=== PATIENT | male | born 1975 | race Caucasian/White ===

== ENCOUNTER 2018-11-13 15:22 | Inpatient (IN) | payer MEDICAID ==
[~2018-11-13] VITALS: Ht 170.2 cm; Wt 93.6 kg
[2018-11-13] MEDS ORDERED: SOD CHLORIDE 0.9% 1,000 ML IV STA (16:24)
[2018-11-13] MEDS ORDERED: morphine 4 MG/ML VIAL IV STA (16:24)
[2018-11-13] MEDS ORDERED: ONDANSETRON 4 MG INJ IV STA (16:24)
[2018-11-13] MEDS ORDERED: ACETAMINOPHEN 500 MG TAB PO STA (17:10)
[2018-11-13] MEDS ORDERED: SOD CHLORIDE 0.9% 100 ML ONE (17:26)
[2018-11-13] MEDS ORDERED: IOHEXOL 350MG/ML 50 ML BTL ONE (17:26)
[2018-11-13] MEDS ORDERED: IOHEXOL 100 ML ONE (17:26)
[2018-11-13] MEDS ORDERED: HEPARIN 25000 UNITS/250 ML 250 ML IV STA (19:46)
[2018-11-13] MEDS ORDERED: HEPARIN 1000 UNITS/ML 10 ML INJ IV STA (19:46)
[2018-11-13] MEDS ORDERED: ACETAMINOPHEN 325 MG TAB PO PRN (20:30)
[2018-11-13] MEDS ORDERED: ONDANSETRON 4 MG INJ IV PRN ×2 (20:30→21:30)
--- NOTE | 2018-11-13 20:36 | ERD ---
ER Documentation Chief Complaint Chief Complaint headcahe ,rt eye redness x 3 days ,rt 2nd toe pain, discoloration x 3 weeks HPI This is a 43-year-old gentleman who is [place]ish-speaking. [employer]er use. The patient presents with a multitude of different complaints. The patient's main complaint is that his right second toe has pain and discoloration possibly for 3 weeks worse over the last several days. The patient is describing some mild throbbing pain to the right leg that is 3 out of 10. He notes a mild right- sided headache, elevated blood pressure and right eye redness again for approximately 3 days. Patient has not seen a primary care physician. He is a known family history of hypertension as well as diabetes. ROS All systems reviewed and are negative except as per history of present illness. Allergies Allergies: Coded Allergies: No Known Allergy (Unverified , 11/13/18) PMhx/Soc Medical and Surgical Hx: pt denies Medical Hx, pt denies Surgical Hx Hx Alcohol Use: No Hx Substance Use: No Hx Tobacco Use: No Smoking Status: Never smoker FmHx Family History: diabetes Physical Exam Vitals Vital Signs Date Temp Pulse Resp B/P (MAP) Pulse Ox O2 O2 Flow FiO2 Time Delivery Rate 11/13/18 80 16 174/103 100 Room Air 18:51 (126) 11/13/18 98.1 92 18 187/114 99 Room Air 15:58 (138) 11/13/18 98.1 92 18 210/107 99 15:25 (141) Physical Exam General: Well developed, well nourished, no acute distress Head: Normocephalic, atraumatic. Eyes: Pupils equally reactive, EOM intact ENT: Moist mucous membranes Neck: Supple, no lymphadenopathy Respiratory: Lungs clear bilaterally, no distress Cardiovascular: RRR, no murmurs, rubs, or gallops Abdominal: Soft, non-tender, non-distended, no peritoneal signs : Deferred MSK: Patient has gangrene and discoloration of the right second toe. There is 2+ dorsalis pedis and posterior tibial pulses. No temperature deficit to bilateral lower extremities. Neurologic: Alert and oriented, moving all extremities, normal speech, no focal weakness, no cerebellar signs Skin: No rash Psych: Normal mood Result Diagram: 11/13/18 1618 11/13/18 1618 Results 24 hrs Laboratory Tests Test 11/13/18 16:03 11/13/18 16:18 11/13/18 16:19 Bedside Glucose 382 mg/dL White Blood Count 7.3 10^3/ul Red Blood Count 4.89 10^6/ul Hemoglobin 14.3 g/dl Hematocrit 41.7 % Mean Corpuscular Volume 85.3 fl Mean Corpuscular Hemoglobin 29.2 pg Mean Corpuscular 34.3 g/dl Hemoglobin Concent Red Cell Distribution Width 11.7 % Platelet Count 220 10^3/UL Mean Platelet Volume 11.3 fl Immature Granulocytes % 0.300 % Neutrophils % 57.6 % Lymphocytes % 30.6 % Monocytes % 8.5 % Eosinophils % 2.5 % Basophils % 0.5 % Nucleated Red Blood Cells % 0.0 /100WBC Immature Granulocytes # 0.020 10^3/ul Neutrophils # 4.2 10^3/ul Lymphocytes # 2.2 10^3/ul Monocytes # 0.6 10^3/ul Eosinophils # 0.2 10^3/ul Basophils # 0.0 10^3/ul Nucleated Red Blood Cells # 0.0 10^3/ul Prothrombin Time 12.0 Sec Prothrombin Time Ratio 0.9 INR International Normalized Ratio 0.88 Activated Partial Thromboplast 26.3 Sec Time Sodium Level 132 mmol/L Potassium Level 4.2 mmol/L Chloride Level 96 mmol/L Carbon Dioxide Level 28 mmol/L Anion Gap 8 Blood Urea Nitrogen 19 mg/dl Creatinine 0.93 mg/dl Est Glomerular Filtrat Rate mL/min > 60 mL/min Glucose Level 393 mg/dl Calcium Level 9.0 mg/dl POC Venous Lactate 1.5 mmol/L Current Medications Medications Dose Sig/Courtney Start Time Status Last (Trade) Ordered Route PRN Stop Time Admin Dose Reason Admin Sodium 1,000 ml @ Q1H STAT 11/13/18 DC 11/13/18 Chloride 1,000 mls/hr IV 16:24 17:20 11/13/18 17:23 Ondansetron 4 mg ONCE STAT 11/13/18 DC HCl (Zofran IV 16:24 Inj) 11/13/18 16:25 Morphine 4 mg ONCE STAT 11/13/18 DC Sulfate IV 16:24 (morphine) 11/13/18 16:25 1,000 mg ONCE STAT 11/13/18 DC 11/13/18 Acetaminophen PO 17:10 18:08 (Tylenol 11/13/18 17:34 Tab) Iohexol 100 ml @ ud STK-MED 11/13/18 DC 11/13/18 ONCE .ROUTE 17: 17:11/13/18 17:27 Iohexol 50 ml STK-MED 11/13/18 DC 11/13/18 (Omnipaque ONCE .ROUTE 17: 17: 350mg/ ml) 11/13/18 17:27 Sodium 100 ml @ ud STK-MED 11/13/18 DC 11/13/18 Chloride ONCE .ROUTE 17: 17:26 11/13/18 17:27 Heparin 5,000 unit ONCE STAT 11/13/18 DC Sodium IV 19:46 (Porcine) 11/13/18 19:47 (Heparin (1000 Units/ml)) Heparin 250 ml @ 0 ONCE STAT 11/13/18 DC Sodium mls/hr IV 19:46 (Porcine) 11/13/18 19:47 Ondansetron 4 mg ER BRIDGE 11/13/18 HCl (Zofran PRN IV 20:30 Inj) NAUSEA/VOMITI 11/14/18 20:29 NG 650 mg ER BRIDGE 11/13/18 Acetaminophen PRN PO 20:30 (Tylenol .MILD PAIN 11/14/18 20:29 Tab) 1-3 OR TEMP Procedures/MDM EKG, MONITORS, & DIAGNOSTIC IMAGING: EKG: I reviewed and interpreted a 12-lead EKG. Rhythm: Normal sinus rhythm ST Changes: No contiguous ST segment elevations T waves: No contiguous T wave inversions Impression: [No evidence of acute cardiac ischemia] CT brain: No acute process Arterial Study IMPRESSION: Monophasic wave forms bilateral dorsalis pedis arteries consistent with significant stenoses. Normal bilateral ABIs. RPTAT:AAJJ CTA Right leg IMPRESSION: 1. There is occlusion of the right anterior tibial artery just beyond its origin with only faint trickle flow seen in the mid anterior tibial artery. There is reconstitution of the vessel approximately 9 cm above the joint line. 2. Patent and grossly normal caliber of the dorsalis pedis artery. The dominant flow to the right lower extremities from the posterior tibial and peroneal arteries. 3. No evidence of significant atherosclerotic plaque within the right common femoral, superficial femoral or popliteal artery. These vessels are grossly normal in appearance. RPTAT: [facility] INTERPRETATION: I reviewed the laboratory testing and it shows hyperglycemia MEDICAL DECISION MAKING: Patient presents with discoloration of his toe. The patient has hypertension and likely diabetes. All these conditions are likely subacute and the patient has not seen a primary care physician and likely has uncontrolled hypertension and diabetes possibly hyperlipidemia. The patient's discoloration is possibly concerning for possible vascular occlusion though he has no evidence of pulse deficits. He seems to be well perfused distally. Patient will benefit from arterial studies ER COURSE: * Patient CTA is concerning for occlusion. The patient has subacute discomfort and no significant pain out of proportion. Vascular surgeon notified. Dr. Ohara states the patient should be placed on heparin and he will see the patient in the morning. * Pain is well controlled. * Hyperglycemia without evidence of diabetic ketoacidosis. * Heparin bolus and drip initiated CONSULTATION: Vascular surgeon Dr. Ohara notified DISPOSITION PLAN: Accepting care team and consultations: I discussed the current laboratory data, diagnostic imaging and emergency care provided. Admitting team: Dr. Mauricio Admitting team indication: Insurance directed Departure Diagnosis: Primary Impression: Peripheral arterial occlusive disease Additional Impressions: Hyperglycemia Diabetes mellitus, new onset Condition: Stable XIN ROJAS MD November 13, 2018 20:36
[2018-11-13 21:15] VITALS: BP 166/104; PULSE 77; RESP 20
--- NOTE | 2018-11-13 21:24 | HP ---
Date/Time of Note Date/Time of Note DATE: 11/13/18 TIME: 21:22 Assessment/Plan VTE Prophylaxis Pharmacological prophylaxis: heparin Lines/Catheters IV Catheter Type (from [facility]): [facility]ine [facility] Assessment/Plan Hospital Course This is a 43-year-old male being admitted to the telemetry floor for: #1 Right second toe gangrene, arterial occlusion: CT of the lower extremity shows there is occlusion of the right anterior tibial artery just beyond its origin with only faint trickle flow seen in the mid anterior tibial artery. Ther e is reconstitution of the vessel approximately 9 cm above the joint line. Ultrasound bilateral lower extremity: Monophasic wave forms bilateral dorsalis pedis arteries consistent with significant stenoses. Normal bilateral ABIs.Patient has already been started on heparin gtt. vascular surgery consultation as been obtained from the ER. We will keep the patient n.p.o. except meds in case for surgical procedure in the a.m. #2 peripheral arterial disease: Heparin GTT, further management as per #1. #3 elevated blood sugars: Patient likely has undiagnosed underlying diabetes mellitus. Will check a hemoglobin A 1C, insulin sliding scale. We will need to optimize patient's blood sugars the patient is indeed found to be diabetic. #4 obesity: We will check hemoglobin A1c, lipid panel, TSH #5 DVT GI prophylaxis: SCDs, no GI prophylaxis indicated Further treatment strategy will be implemented as per the clinical course. Result Diagram: 11/13/18 1618 11/13/18 1618 Results 24hrs Laboratory Tests Test 11/13/18 16:03 11/13/18 16:18 11/13/18 16:19 Bedside Glucose 382 H White Blood Count 7.3 Red Blood Count 4.89 Hemoglobin 14.3 Hematocrit 41.7 L Mean Corpuscular Volume 85.3 Mean Corpuscular Hemoglobin 29.2 Mean Corpuscular Hemoglobin Concent 34.3 Red Cell Distribution Width 11.7 Platelet Count 220 Mean Platelet Volume 11.3 H Immature Granulocytes % 0.300 Neutrophils % 57.6 Lymphocytes % 30.6 Monocytes % 8.5 Eosinophils % 2.5 Basophils % 0.5 Nucleated Red Blood Cells % 0.0 Immature Granulocytes # 0.020 Neutrophils # 4.2 Lymphocytes # 2.2 Monocytes # 0.6 Eosinophils # 0.2 Basophils # 0.0 Nucleated Red Blood Cells # 0.0 Prothrombin Time 12.0 Prothrombin Time Ratio 0.9 INR International Normalized Ratio 0.88 Activated Partial Thromboplast Time 26.3 Sodium Level 132 L Potassium Level 4.2 Chloride Level 96 L Carbon Dioxide Level 28 Anion Gap 8 Blood Urea Nitrogen 19 Creatinine 0.93 Est Glomerular Filtrat Rate mL/min > 60 Glucose Level 393 H Calcium Level 9.0 POC Venous Lactate 1.5 HPI/ROS Admit Date/Time Admit Date/Time November 13, 2018 at 20:04 Hx of Present Illness Plan: Right second digit pain This is a 43-year-old male who presented to the emergency department complaining of right foot second digit pain. Patient is a poor historian.. The patient's main complaint is that his right second toe has pain and discoloration possibly for 3 weeks worse over the last several days. He reports some mild throbbing pain to the right leg that is 3 out of 10. He notes a mild right-sided headache, elevated blood pressure and right eye redness again for approximately 3 days. Patient has not seen a primary care physician. He is a known family history of hypertension as well as diabetes. Allergies: NKDA Medications: None ROS Const: As per HPI Eyes : No pain discharge or redness or change in visual acuity ENT: No pain, sore throat, congestion, congestion, dysphagia or discharge Respiratory: No shortness of breath, cough, sputum, wheezing, or pleuritic pain Cardiovascular: No chest pain, palpitation, PND, or edema GI : no change in appetite, abdominal pain, nausea, vomiting, diarrhea, constipation, or change in the color his stool Genitourinary: No dysuria, hematuria, flank pain , discharge or CVA tenderness Musculoskeletal: As per HPI Skin: As per HPI Neuro: No headache, dizziness, syncope, seizure, focal weakness, decreased sensation of the bilateral feet Endocrine: No polyuria, polydipsia, temperature intolerance Psych: No hallucination, depression, anxiety or suicidal ideation PMH/Family/Social Past Medical History Medical History: no pertinent history Medications Current Medications Ondansetron HCl (Zofran Inj) 4 mg ER BRIDGE PRN IV NAUSEA/VOMITING; Start 11/13/18 at 20:30; Stop 11/14/18 at 20:29 Acetaminophen (Tylenol Tab) 650 mg ER BRIDGE PRN PO .MILD PAIN 1-3 OR TEMP; Start 11/13/18 at 20:30; Stop 11/14/18 at 20:29 Sodium Chloride 1,000 ml @ 75 mls/hr [id number] IV ; Start 11/14/18 at 00:00; Status UNV IV Flush (NS 3 ml) 3 ml PER PROTOCOL IV ; Start 11/13/18 at 21:30; Status UNV Ondansetron HCl (Zofran Inj) 4 mg Q6H PRN IV NAUSEA/VOMITING; Start 11/13/18 at 21:30; Status UNV Nitroglycerin (Nitroglycerin (Sl Tab) 0.4 Mg) 1 tab Q5M PRN SL .CHEST PAIN; Start 11/13/18 at 21:30; Status UNV Acetaminophen (Tylenol Tab) 650 mg Q6H PRN PO .PAIN 1-3 OR TEMP; Start 11/13/18 at 21:30; Status UNV Acetaminophen/ Hydrocodone Bitart ([place] (5/325)) 1 tab Q6H PRN PO .PAIN 4-6; Start 11/13/18 at 21:30; Status UNV Morphine Sulfate (morphine) 2 mg Q4H PRN IV .PAIN 7-10; Start 11/13/18 at 21:30; Status UNV Coded Allergies: No Known Allergy (Unverified , 11/13/18) Past Surgical History Past Surgical Hx: no surgical history Family History Significant Family History: diabetes, hypertension Social History Alcohol Use: occasionally Smoking Status: Never smoker Drug Use: none Exam/Review of Systems Vital Signs Vitals Vital Signs Date Temp Pulse Resp B/P (MAP) Pulse Ox O2 O2 Flow FiO2 Time Delivery Rate 11/13/18 77 13 165/94 99 Room Air 20:55 (117) 11/13/18 98.1 15:58 Exam Exam General: Patient is a pleasant male currently lying in bed in no acute distress HEENT: Atraumatic, normocephalic. The pupils are equal, round and reactive. Extraocular motor are intact Neck: Supple with full range of motion. No rigidity or meningismus Chest: Nontender Lungs: Clear to auscultation bilaterally no crackles rales or wheezing Heart: Normal S1-S2, Regular rhythm and rate. No murmur, S3, or S4 Abdomen: Soft , nontender, nondistended , bowel sounds are present. No guarding no rebound tenderness , No masses or organomegaly. No costovertebral temporal angle mass Extremities: Patient has gangrene and discoloration of the right second toe. There is 2+ dorsalis pedis and posterior tibial pulses. No temperature deficit to bilateral lower extremities. Skin: Patient does have a plantar surface lesion of the right toe, non-oozing Neurologic: Normal mental status, speech normal, cranial nerves II through XII are intact, diminished sensation of the bilateral plantar surface. Additional Comments PROCEDURE: CT Brain without. CLINICAL INDICATION: Headache TECHNIQUE: A CT of the brain was performed utilizing axial sections from the skull base through the vertex without contrast. The scan was reviewed in soft tissue brain and high frequency resolution bone algorithm windows. Images were reviewed on a high-resolution PACS workstation. The exam CTDI = 39.20 mGy, and the DLP = 634.23 mGy-cm. One or more of the following dose reduction techniques were used: Automated exposure control, adjustment of the mA and / or kV according to patient size, or use of iterative reconstruction technique. DICOM images are available. COMPARISON: None available FINDINGS: The ventricles are normal in size and midline in position. There is no intracranial hemorrhage, midline shift, or mass effect. No abnormal extra-axial fluid collections are identified. The carrero-white differentiation is well preserved. The basal cisterns are patent. The posterior fossa is unremarkable. The visualized portions of the orbits are unremarkable. The paranasal sinuses and mastoid air cells are clear. No calvarial fracture or abnormality are identified. There is right posterior scalp edema. IMPRESSION: 1. No acute intracranial abnormality identified. 2. Right posterior scalp edema. RPTAT: HH .Samreen Nichols MD, Date Time Electronically viewed and signed by .Samreen Nichols MD, MD on 11/13/2018 18:10 .G/ CC: XIN ROJAS MD [id number] PROCEDURE: US Lower extremity arterial. CLINICAL INDICATION: Bilateral lower extremity pain and claudication. Right second toe gangrene. TECHNIQUE: Multiple sonographic images of the bilateral lower extremity arteries were obtained utilizing carrero scale, color-flow and doppler imaging. Bilateral ABIs were performed. COMPARISON: None. FINDINGS: No significant atherosclerotic disease on carrero scale imaging. Velocities and waveforms were obtained as described below. RIGHT LEG: Right common femoral artery: 77 cm/s; triphasic waveforms Right proximal superficial femoral artery: 91 cm/s; triphasic waveforms Right mid superficial femoral artery: 97 cm/s; triphasic waveforms Right distal superficial femoral artery: 66 cm/s; triphasic waveforms Right popliteal artery: 77 cm/s; triphasic waveforms Right posterior tibial artery: 89 cm/s; triphasic waveforms Right dorsalis pedis artery: 39 cm/s; monophasic waveforms Right CRIS: 1.0 LEFT LEG: Left common femoral artery: 96 cm/s; triphasic waveforms Left proximal superficial femoral artery: 60 cm/s; triphasic waveforms Left mid superficial femoral artery: 71 cm/s; triphasic waveforms Left distal superficial femoral artery: 67 cm/s; triphasic waveforms Left popliteal artery: 66 cm/s; triphasic waveforms Left posterior tibial artery: 95 cm/s; triphasic waveforms Left dorsalis pedis artery: 49 cm/s; monophasic waveforms Left CRIS: 1.0 IMPRESSION: Monophasic wave forms bilateral dorsalis pedis arteries consistent with significant stenoses. Normal bilateral ABIs. RPTAT:AAJJ Physician Sienna Date Time Electronically viewed and signed by Physician Sienna on 11/13/2018 17:27 MH/ CC: XIN ROJAS MD [id number] PROCEDURE: CT lower extremity angiogram CLINICAL INDICATION: Right second toe gangrene. TECHNIQUE: A CT angiogram of the right lower extremity was performed on a GE 64-slice CT scanner utilizing high-resolution axial imaging after the uneventful intravenous administration of 120 cc of Omnipaque 350. Delayed high-resolution axial images were performed through the distal lower extremities and feet. 3-D reformats were made. Sagittal and coronal reformatted images were made. One or more the following dose reduction techniques were utilized: Automated exposure control, adjustment of the mA/ or kV according to patient's size, or use of iterative reconstruction technique. DICOM images are available for review. The CTDIvol is 45.8 and 6.5 mGy and the DLP is 804.3 mGycm. COMPARISON: Bilateral lower extremity arterial Doppler study 11/13/2018. FINDINGS: The right common femoral, superficial femoral, and popliteal arteries are patent and normal in caliber without significant plaque. The visualized left common femoral artery and superficial femoral arteries are patent and normal in caliber as well. There is no evidence of significant atherosclerotic plaque. There is occlusion of the right anterior tibial artery with areas of soft and calcific plaque identified. Faint trickle flow is seen within the mid anterior tibial artery. There is reconstitution of the vessel approximately 9 cm above the joint line with only scattered plaque but grossly normal filling of the vessel identified. There is normal contrast flow within the dorsalis pedis. The dominant flow to the right lower extremity is from the posterior tibial and peroneal arteries. The osseous structures are grossly intact. IMPRESSION: 1. There is occlusion of the right anterior tibial artery just beyond its origin with only faint trickle flow seen in the mid anterior tibial artery. The re is reconstitution of the vessel approximately 9 cm above the joint line. 2. Patent and grossly normal caliber of the dorsalis pedis artery. The dominant flow to the right lower extremities from the posterior tibial and peroneal arteries. 3. No evidence of significant atherosclerotic plaque within the right common femoral, superficial femoral or popliteal artery. These vessels are grossly normal in appearance. RPTAT: [facility] .Mariam Ayoub MD, MD Date Time Electronically viewed and signed by .Mariam Ayoub MD, MD on 11/13/2018 18:26 .H/ CC: XIN ROJAS MD [id number] KEARA LOMELI November 13, 2018 21:24
[2018-11-13 21:25] VITALS: PULSE 80
[2018-11-13] MEDS ORDERED: HYDROCODONE/APAP (5/325) TAB PO PRN (21:30)
[2018-11-13] MEDS ORDERED: HEPARIN 1000 UNITS/ML 10 ML INJ IV ONE (21:30)
[2018-11-13] MEDS ORDERED: morphine 2 MG INJ IV PRN (21:30)
[2018-11-13] MEDS ORDERED: NACL 0.9% 3 ML SYG IV SCH (21:30)
[2018-11-13] MEDS ORDERED: LISINOPRIL 20 MG TAB PO ONE (21:30)
[2018-11-13] MEDS ORDERED: NITROGLYCERIN (SL) 0.4 MG TAB SL PRN (21:30)
[2018-11-13 22:00] VITALS: Ht 170.2 cm; Wt 93.6 kg
[2018-11-13] MEDS ORDERED: DEXTROSE 50% 50 ML SYRINGE IV PRN ×2 (22:00)
[2018-11-13] MEDS ORDERED: GLUCOSE GEL 15 GRAM TUBE BUCCAL PRN (22:00)
[2018-11-13] MEDS ORDERED: GLUCAGON 1 MG INJ IM PRN (22:00)
[2018-11-13] MEDS ORDERED: GLUCOSE GEL 15 GRAM TUBE PO PRN ×2 (22:00)
[2018-11-13] MEDS: HEPARIN 25000 UNITS/250 ML 250 ML IV SCH (22:19)
[2018-11-13 23:48] VITALS: BP 148/83; PULSE 79; RESP 18
[2018-11-14] VITALS (10 sets, daily range): BP systolic 140–155; BP diastolic 82–98; PULSE 76–89; RESP 18
[2018-11-14] MEDS: SOD CHLORIDE 0.9% 1,000 ML IV SCH ×2 (00:36→12:21)
[2018-11-14] MEDS: INSULIN ASPART [NOVOLOG] 3 ML PEN SC SCH ×4 (00:41→17:20)
[2018-11-14] MEDS: ACCU-CHEK XX SCH (02:00)
[2018-11-14] MEDS ORDERED: HEPARIN 1000 UNITS/ML 10 ML INJ IV PRN ×2 (03:00)
[2018-11-14] MEDS: HEPARIN 25000 UNITS/250 ML 250 ML IV SCH ×4 (07:26→18:13)
[2018-11-14] MEDS: LISINOPRIL 20 MG TAB PO SCH (08:21)
[2018-11-14] MEDS: Insulin NOVOLOG SS MILD Algorithm (SS with meals and bedtime) SC SCH ×3 (11:20→21:17)
[2018-11-14] MEDS ORDERED: INSULIN ASPART [NOVOLOG] 3 ML PEN SC SCH (11:30)
--- NOTE | 2018-11-14 15:29 | PN ---
Date/Time of Note Date/Time of Note DATE: 11/14/18 TIME: 15:28 Assessment/Plan VTE Prophylaxis Risk score (from Nsg)>0 risk: 1 SCD applied (from Ns): No SCD contraindicated: other Pharmacological prophylaxis: heparin Lines/Catheters IV C[facility]ter Type (from [facility]): Peripheral IV Assessment/Plan Hospital Course SUBJECTIVE: Denies any pain. OBJECTIVE: Physical Exam General: Obese, 43 year-old male lying in bed in no apparent distress. HEENT: Normocephalic, atraumatic. Eyes: Anicteric sclerae, conjunctivae clear. ENT: Nasal septum midline, oral mucosa moist. Neck supple, no JVD noticed. Respiratory: Bilaterally clear breath sounds. No use of accessory muscles of respiration. No adventitious breath sounds. Cardiovascular: S1, S2 heard. Regular rate and rhythm. Abdomen: Soft, nontender, and nondistended. Bowel sounds positive in all 4 quadrants. Genitourinary: Deferred. Extremities: No cyanosis, no clubbing, no edema. Right second toe necrosis with some warmth to touch. Neurologic: Cranial nerves II through XII grossly intact. The patient is awake, alert, and oriented. Skin: Normal skin turgor. No skin rashes. Labs & Vitals per chart ASSESSMENT & PLAN 43-year-old male who is obese who denies any significant past medical history who came with right second toe pain with CTA showing occlusion of the right anterior tibial artery, and was admitted to inpatient setting for further treatment and evaluation. 1. 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 -Continue heparin drip. -Vascular Surgery has been consulted. 2. Peripheral artery disease -Continue medical optimization. -Being followed by vascular surgery. 3. Diabetes mellitus type 2. -Newly diagnosed versus undiagnosed. -Hemoglobin A1c 13.9. -Continue the patient on sliding scale insulin along with basal insulin and premeal insulin. -Diabetes education consult. 4. Hypertension. -Continue the patient on PHYLLIS inhibitors. 5. Obesity. -BMI more than 32 kg/m. -Weight reduction will be advised. 6. Dyslipidemia. -Start the patient on statins. 7. Fluids, electrolytes, and nutrition. -Carbohydrate controlled diet. 8. DVT prophylaxis. -On heparin drip. 9. Plan. -Continue heparin drip. -Continue medical optimization. -Await vascular surgery evaluation. The patient was seen in collaboration with Dr. Farris. Result Diagram: 11/14/18 0505 11/14/18 0505 Results 24hrs Laboratory Tests Test 11/13/18 16:03 11/13/18 16:18 11/13/18 16:19 11/14/18 00:37 Bedside Glucose 382 H 280 H White Blood Count 7.3 Red Blood Count 4.89 Hemoglobin 14.3 Hematocrit 41.7 L Mean Corpuscular 85.3 Volume Mean Corpuscular 29.2 Hemoglobin Mean Corpuscular 34.3 Hemoglobin Concent Red Cell 11.7 Distribution Width Platelet Count 220 Mean Platelet Volume 11.3 H Immature 0.300 Granulocytes % Neutrophils % 57.6 Lymphocytes % 30.6 Monocytes % 8.5 Eosinophils % 2.5 Basophils % 0.5 Nucleated Red Blood 0.0 Cells % Immature 0.020 Granulocytes # Neutrophils # 4.2 Lymphocytes # 2.2 Monocytes # 0.6 Eosinophils # 0.2 Basophils # 0.0 Nucleated Red Blood 0.0 Cells # Prothrombin Time 12.0 Prothrombin Time 0.9 Ratio INR International 0.88 Normalized Ratio Activated 26.3 Partial Thromboplast Time Sodium Level 132 L Potassium Level 4.2 Chloride Level 96 L Carbon Dioxide Level 28 Anion Gap 8 Blood Urea Nitrogen 19 Creatinine 0.93 Est Glomerular > 60 Filtrat Rate mL/min Glucose Level 393 H Calcium Level 9.0 POC Venous Lactate 1.5 Test 11/14/18 02:04 11/14/18 05:05 11/14/18 05:38 11/14/18 07:53 Bedside Glucose 254 H 259 H White Blood Count 7.3 Red Blood Count 4.64 L Hemoglobin 13.9 L Hematocrit 39.4 L Mean Corpuscular 84.9 Volume Mean Corpuscular 30.0 Hemoglobin Mean Corpuscular 35.3 Hemoglobin Concent Red Cell 12.0 Distribution Width Platelet Count 193 Mean Platelet Volume 11.0 H Immature 0.100 Granulocytes % Neutrophils % 52.5 Lymphocytes % 33.8 Monocytes % 8.4 Eosinophils % 4.5 Basophils % 0.7 Nucleated Red Blood 0.0 Cells % Immature 0.010 Granulocytes # Neutrophils # 3.8 Lymphocytes # 2.5 Monocytes # 0.6 Eosinophils # 0.3 Basophils # 0.1 Nucleated Red Blood 0.0 Cells # Prothrombin Time 13.4 Prothrombin Time 1.0 Ratio INR International 1.01 Normalized Ratio Activated > 180.0 *H 74.2 *H Partial Thromboplast Time Sodium Level 138 Potassium Level 3.7 Chloride Level 106 # Carbon Dioxide Level 26 Anion Gap 6 Blood Urea Nitrogen 13 Creatinine 0.64 Est Glomerular > 60 Filtrat Rate mL/min Glucose Level 277 #H Hemoglobin A1c 13.9 H Calcium Level 8.2 L Magnesium Level 2.0 Total Bilirubin 0.3 Direct Bilirubin 0.00 Indirect Bilirubin 0.3 Aspartate Amino 29 Transf (AST/SGOT) Alanine 36 Aminotransferase (AL T/SGPT) Alkaline Phosphatase 99 Total Protein 6.8 Albumin 3.2 L Globulin 3.60 H Albumin/Globulin 0.88 Ratio Triglycerides Level 166 H Cholesterol Level 201 H LDL Cholesterol, 123 Calculated HDL Cholesterol 45 Cholesterol/HDL 4.4 Ratio Thyroid Stimulating 4.050 Hormone (TSH) Test 11/14/18 08:03 11/14/18 10:59 11/14/18 14:54 Bedside Glucose 249 H 209 Activated 66.6 H Partial Thromboplast Time Exam/Review of Systems Exam Vitals Vital Signs Date Temp Pulse Resp B/P (MAP) Pulse Ox O2 O2 Flow FiO2 Time Delivery Rate 11/14/18 98.3 89 18 150/89 97 15:22 (109) 11/14/18 Room Air 04:04 Results Results 24hrs Laboratory Tests Test 11/13/18 16:03 11/13/18 16:18 11/13/18 16:19 11/14/18 00:37 Bedside Glucose 382 H 280 H White Blood Count 7.3 Red Blood Count 4.89 Hemoglobin 14.3 Hematocrit 41.7 L Mean Corpuscular 85.3 Volume Mean Corpuscular 29.2 Hemoglobin Mean Corpuscular 34.3 Hemoglobin Concent Red Cell 11.7 Distribution Width Platelet Count 220 Mean Platelet Volume 11.3 H Immature 0.300 Granulocytes % Neutrophils % 57.6 Lymphocytes % 30.6 Monocytes % 8.5 Eosinophils % 2.5 Basophils % 0.5 Nucleated Red Blood 0.0 Cells % Immature 0.020 Granulocytes # Neutrophils # 4.2 Lymphocytes # 2.2 Monocytes # 0.6 Eosinophils # 0.2 Basophils # 0.0 Nucleated Red Blood 0.0 Cells # Prothrombin Time 12.0 Prothrombin Time 0.9 Ratio INR International 0.88 Normalized Ratio Activated 26.3 Partial Thromboplast Time Sodium Level 132 L Potassium Level 4.2 Chloride Level 96 L Carbon Dioxide Level 28 Anion Gap 8 Blood Urea Nitrogen 19 Creatinine 0.93 Est Glomerular > 60 Filtrat Rate mL/min Glucose Level 393 H Calcium Level 9.0 POC Venous Lactate 1.5 Test 11/14/18 02:04 11/14/18 05:05 11/14/18 05:38 11/14/18 07:53 Bedside Glucose 254 H 259 H White Blood Count 7.3 Red Blood Count 4.64 L Hemoglobin 13.9 L Hematocrit 39.4 L Mean Corpuscular 84.9 Volume Mean Corpuscular 30.0 Hemoglobin Mean Corpuscular 35.3 Hemoglobin Concent Red Cell 12.0 Distribution Width Platelet Count 193 Mean Platelet Volume 11.0 H Immature 0.100 Granulocytes % Neutrophils % 52.5 Lymphocytes % 33.8 Monocytes % 8.4 Eosinophils % 4.5 Basophils % 0.7 Nucleated Red Blood 0.0 Cells % Immature 0.010 Granulocytes # Neutrophils # 3.8 Lymphocytes # 2.5 Monocytes # 0.6 Eosinophils # 0.3 Basophils # 0.1 Nucleated Red Blood 0.0 Cells # Prothrombin Time 13.4 Prothrombin Time 1.0 Ratio INR International 1.01 Normalized Ratio Activated > 180.0 *H 74.2 *H Partial Thromboplast Time Sodium Level 138 Potassium Level 3.7 Chloride Level 106 # Carbon Dioxide Level 26 Anion Gap 6 Blood Urea Nitrogen 13 Creatinine 0.64 Est Glomerular > 60 Filtrat Rate mL/min Glucose Level 277 #H Hemoglobin A1c 13.9 H Calcium Level 8.2 L Magnesium Level 2.0 Total Bilirubin 0.3 Direct Bilirubin 0.00 Indirect Bilirubin 0.3 Aspartate Amino 29 Transf (AST/SGOT) Alanine 36 Aminotransferase (AL T/SGPT) Alkaline Phosphatase 99 Total Protein 6.8 Albumin 3.2 L Globulin 3.60 H Albumin/Globulin 0.88 Ratio Triglycerides Level 166 H Cholesterol Level 201 H LDL Cholesterol, 123 Calculated HDL Cholesterol 45 Cholesterol/HDL 4.4 Ratio Thyroid Stimulating 4.050 Hormone (TSH) Test 11/14/18 08:03 11/14/18 10:59 11/14/18 14:54 Bedside Glucose 249 H 209 Activated 66.6 H Partial Thromboplast Time Medications Medication Current Medications Ondansetron HCl (Zofran Inj) 4 mg ER BRIDGE PRN IV NAUSEA/VOMITING; Start 11/13/18 at 20:30; Stop 11/14/18 at 20:29 Acetaminophen (Tylenol Tab) 650 mg ER BRIDGE PRN PO .MILD PAIN 1-3 OR TEMP; Start 11/13/18 at 20:30; Stop 11/14/18 at 20:29 Sodium Chloride 1,000 ml @ 75 mls/hr [id number] IV Last administered on 11/14/18at 12:21; Admin Dose 75 MLS/HR; Start 11/14/18 at 00:00 IV Flush (NS 3 ml) 3 ml PER PROTOCOL IV ; Start 11/13/18 at 21:30 Ondansetron HCl (Zofran Inj) 4 mg Q6H PRN IV NAUSEA/VOMITING; Start 11/13/18 at 21:30 Nitroglycerin (Nitroglycerin (Sl Tab) 0.4 Mg) 1 tab Q5M PRN SL .CHEST PAIN; Start 11/13/18 at 21:30 Acetaminophen (Tylenol Tab) 650 mg Q6H PRN PO .PAIN 1-3 OR TEMP; Start 11/13/18 at 21:30 Acetaminophen/ Hydrocodone Bitart ([place] (5/325)) 1 tab Q6H PRN PO .PAIN 4-6; Start 11/13/18 at 21:30 Morphine Sulfate (morphine) 2 mg Q4H PRN IV .PAIN 7-10; Start 11/13/18 at 21:30 Diagnostic Test (Pha) (Accu-Chek) 1 ea 02 XX ; Start 11/14/18 at 02:00 Lisinopril (Zestril) 20 mg DAILY PO Last administered on 11/14/18at 08:21; Admin Dose 20 MG; Start 11/14/18 at 09:00 Heparin Sodium (Porcine) (Heparin (1000 Units/ml)) 7,500 unit PER PROTOCOL PRN IV aPTT<47; Start 11/14/18 at 03:00 Heparin Sodium (Porcine) (Heparin (1000 Units/ml)) 3,700 unit PER PROTOCOL PRN IV aPTT<47-57; Start 11/14/18 at 03:00 Heparin Sodium (Porcine) 250 ml @ 17 mls/hr PER PROTOCOL IV Last administered on 11/14/18at 09:42; Admin Dose 14 MLS/HR; Start 11/13/18 at 21:30 Miscellaneous Information 1 ea NOTE XX ; Start 5/29/19 at 22:00 Glucose (Glutose) 15 gm Q15M PRN PO DECREASED GLUCOSE; Start 11/13/18 at 22:00 Glucose (Glutose) 22.5 gm Q15M PRN PO DECREASED GLUCOSE; Start 11/13/18 at 22:00 Dextrose (D50w Syringe) 25 ml Q15M PRN IV DECREASED GLUCOSE; Start 11/13/18 at 22:00 Dextrose (D50w Syringe) 50 ml Q15M PRN IV DECREASED GLUCOSE; Start 11/13/18 at 22:00 Glucagon (Glucagen) 1 mg Q15M PRN IM DECREASED GLUCOSE; Start 11/13/18 at 22:00 Glucose (Glutose) 15 gm Q15M PRN BUCCAL DECREASED GLUCOSE; Start 11/13/18 at 22:00 Insulin Aspart (Novolog Insulin Pen) (Adult SC Insulin - Mild Algorithm)... AC MEALS AND BEDTIME SC Last administered on 11/14/18at 11:20; Admin Dose 2 UNIT; Start 11/14/18 at 11:30 IVONNE GARCIA NP November 14, 2018 15:29
[2018-11-14] MEDS ORDERED: INSULIN GLARGINE [LANTus] (100 UNITS/ML) SYG SC SCH (20:00)
[2018-11-14] MEDS: ATORVASTATIN 40 MG TAB PO SCH (21:15)
[2018-11-14] MEDS: ACETAMINOPHEN 325 MG TAB PO PRN (21:24)
[2018-11-14] MEDS ORDERED: hydrALAzine 20 MG INJ IV PRN (21:30)
--- NOTE | 2018-11-14 23:06 | CONS ---
DATE OF ADMISSION: 11/13/2018 DATE OF CONSULTATION: 11/14/2018 REASON FOR CONSULTATION: Evaluation for peripheral vascular disease. HISTORY OF PRESENT ILLNESS: This is a 43-year-old male with a history of hypertension, diabetes, per ipheral vascular disease, admitted because of a right second toe gangrene. Part of his workup has in cluded arterial studies of the lower extremity, which was positive for no significant atherosclerotic disease and triphasic flow all the way down through the femoral popliteal system and the posterior t ibial system; however, monophasic flow in the dorsalis pedis arteries bilaterally. He also had a CT angiogram and the CT angiogram showed occlusion of the right anterior tibial artery at its origin with reconstitution of the vessel 9 cm below. The patient's problem is chronic. The p atient does not have a leukocytosis or fever. His white count is 7.3 and there is no fever. His hem oglobin A1c is 13.9. PAST MEDICAL HISTORY: Hypertension, hyperlipidemia, diabetes. PAST SURGICAL HISTORY: None. ALLERGIES: NONE. SOCIAL HISTORY: No smoking, drinking or drug use. MEDICATIONS: List reviewed. PHYSICAL EXAMINATION: VITAL SIGNS: Blood pressure is 110/60, pulse is 80, respirations 18. CARDIOVASCULAR: Regular rate and rhythm. No murmurs, gallops or rubs. LUNGS: Clear to auscultation and palpation. ABDOMEN: Soft, nontender, nondistended. EXTREMITIES: Warm all the way down to the toes. There is capillary refill 2 seconds in each side. There are bilateral femoral pulses, popliteal pulses and posterior tibial pulses. Dorsalis pedis pul ses are absent. LABORATORY VALUES: Significant for a white count of 7.3, hemoglobin 13.9 and a creatinine of 0.6. IMPRESSION: 1. Peripheral vascular disease. 2. Gangrene, right second toe. 3. Diabetes. RECOMMENDATIONS: This patient will probably lose the right second toe when the lines of demarcations are complete. At this time, no surgical intervention is needed. We will continue local wound care, diabetes control. Discussed with the patient at length. All questions were answered. Dictated By: MARKEL MERIDA MD FM/NTS Conf#: [id number] DID#: [id number] CC: KEARA LOMELI MD;*EndCC*
[2018-11-15] MEDS: ACCU-CHEK XX SCH (02:00)
[2018-11-15 02:25] VITALS: BP 144/88; PULSE 77; RESP 16
[2018-11-15] MEDS: SOD CHLORIDE 0.9% 1,000 ML IV SCH ×3 (02:40→16:00)
[2018-11-15 08:16] VITALS: BP 177/98; PULSE 83; RESP 18
[2018-11-15] MEDS: INSULIN ASPART [NOVOLOG] 3 ML PEN SC SCH ×3 (08:18→17:41)
[2018-11-15] MEDS: Insulin NOVOLOG SS MILD Algorithm (SS with meals and bedtime) SC SCH ×4 (08:18→20:52)
[2018-11-15] MEDS: LISINOPRIL 20 MG TAB PO SCH (09:00)
[2018-11-15] MEDS: HEPARIN 25000 UNITS/250 ML 250 ML IV SCH ×2 (10:52→12:40)
[2018-11-15] MEDS: ACETAMINOPHEN 325 MG TAB PO PRN ×2 (12:24→18:20)
[2018-11-15 14:58] VITALS: BP 150/89; PULSE 90; RESP 18
[2018-11-15] MEDS: CIPROFLOXACIN 0.3% 2.5 ML OPH RIGHT EYE SCH ×3 (15:17→21:51)
--- NOTE | 2018-11-15 15:59 | PN ---
Date/Time of Note Date/Time of Note DATE: 11/15/18 TIME: 15:57 Assessment/Plan VTE Prophylaxis Risk score (from Ns)>0 risk: 1 SCD applied (from Ns): No SCD contraindicated: other Pharmacological prophylaxis: heparin Lines/Catheters IV Catheter Type (from [facility]): Peripheral IV Assessment/Plan Hospital Course SUBJECTIVE: Denies any pain. OBJECTIVE: Physical Exam General: Obese, 43 year-old male lying in bed in no apparent distress. HEENT: Normocephalic, atraumatic. Eyes: Anicteric sclerae, conjunctivae red on the right side. ENT: Nasal septum midline, oral mucosa moist. Neck supple, no JVD noticed. Respiratory: Bilaterally clear breath sounds. No use of accessory muscles of respiration. No adventitious breath sounds. Cardiovascular: S1, S2 heard. Regular rate and rhythm. Abdomen: Soft, nontender, and nondistended. Bowel sounds positive in all 4 quadrants. Genitourinary: Deferred. Extremities: No cyanosis, no clubbing, no edema. Right second toe necrosis with some warmth to touch. Neurologic: Cranial nerves II through XII grossly intact. The patient is awake, alert, and oriented. Skin: Normal skin turgor. No skin rashes. Labs & Vitals per chart ASSESSMENT & PLAN 43-year-old male who is obese who denies any significant past medical history who came with right second toe pain with CTA showing occlusion of the right anterior tibial artery, and was admitted to inpatient setting for further treatment and evaluation. 1. 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 -Continue heparin drip. -S/P evaluation by vascular surgery recommended no vascular intervention. -Obtain podiatry consult. 2. Peripheral artery disease -Continue medical optimization. -Being followed by vascular surgery. 3. Diabetes mellitus type 2. -Newly diagnosed versus undiagnosed. -Hemoglobin A1c 13.9. -Continue the patient on sliding scale insulin along with basal insulin and premeal insulin. -Diabetes education consult. 4. Hypertension. -Continue the patient on PHYLLIS inhibitors. 5. Obesity. -BMI more than 32 kg/m. -Weight reduction will be advised. 6. Dyslipidemia. -Continue the patient on statins. 7. Fluids, electrolytes, and nutrition. -Carbohydrate controlled diet. 8. DVT prophylaxis. -On heparin drip. 9. Plan. -Continue heparin drip. -Continue medical optimization. -Await Podiatry evaluation. The patient was seen in collaboration with Dr. Farris. Result Diagram: 11/15/18 0509 11/15/18 0509 Results 24hrs Laboratory Tests Test 11/14/18 17:14 11/14/18 21:15 11/14/18 22:28 11/15/18 02:04 Bedside Glucose 283 H 232 H 195 Activated 78.7 *H Partial Thromboplast Time Test 11/15/18 05:09 11/15/18 08:03 11/15/18 11:41 11/15/18 12:29 White Blood Count 6.6 Red Blood Count 4.64 L Hemoglobin 13.7 L Hematocrit 40.2 L Mean Corpuscular 86.6 Volume Mean Corpuscular 29.5 Hemoglobin Mean Corpuscular 34.1 Hemoglobin Concent Red Cell 12.3 Distribution Width Platelet Count 212 Mean Platelet Volume 11.0 H Immature 0.200 Granulocytes % Neutrophils % 52.7 Lymphocytes % 32.8 Monocytes % 10.5 Eosinophils % 3.3 Basophils % 0.5 Nucleated Red Blood 0.0 Cells % Immature 0.010 Granulocytes # Neutrophils # 3.5 Lymphocytes # 2.2 Monocytes # 0.7 Eosinophils # 0.2 Basophils # 0.0 Nucleated Red Blood 0.0 Cells # Erythrocyte 35 H Sedimentation Rate Activated 112.5 *H 63.3 H Partial Thromboplast Time Sodium Level 139 Potassium Level 3.9 Chloride Level 106 Carbon Dioxide Level 27 Anion Gap 6 Blood Urea Nitrogen 8 Creatinine 0.66 Est Glomerular > 60 Filtrat Rate mL/min Glucose Level 246 H Calcium Level 8.6 Phosphorus Level 5.1 H Magnesium Level 2.0 Total Bilirubin 0.4 Direct Bilirubin 0.00 Indirect Bilirubin 0.4 Aspartate Amino 38 Transf (AST/SGOT) Alanine 37 Aminotransferase (AL T/SGPT) Alkaline Phosphatase 82 C-Reactive Protein 0.7 Total Protein 6.7 Albumin 3.2 L Globulin 3.50 H Albumin/Globulin 0.91 Ratio Bedside Glucose 248 H 269 H Exam/Review of Systems Exam Vitals Vital Signs Date Temp Pulse Resp B/P (MAP) Pulse Ox O2 O2 Flow FiO2 Time Delivery Rate 11/15/18 98.1 90 18 150/89 98 14:58 (109) 11/14/18 Room Air 04:04 Intake and Output 11/14/18 11/14/1819 1515:00 23:00 07:00 IntakeIntake Total 850 ml 1832 ml 500 ml BalanceBalance 850 ml 1832 ml 500 ml Results Results 24hrs Laboratory Tests Test 11/14/18 17:14 11/14/18 21:15 11/14/18 22:28 11/15/18 02:04 Bedside Glucose 283 H 232 H 195 Activated 78.7 *H Partial Thromboplast Time Test 11/15/18 05:09 11/15/18 08:03 11/15/18 11:41 11/15/18 12:29 White Blood Count 6.6 Red Blood Count 4.64 L Hemoglobin 13.7 L Hematocrit 40.2 L Mean Corpuscular 86.6 Volume Mean Corpuscular 29.5 Hemoglobin Mean Corpuscular 34.1 Hemoglobin Concent Red Cell 12.3 Distribution Width Platelet Count 212 Mean Platelet Volume 11.0 H Immature 0.200 Granulocytes % Neutrophils % 52.7 Lymphocytes % 32.8 Monocytes % 10.5 Eosinophils % 3.3 Basophils % 0.5 Nucleated Red Blood 0.0 Cells % Immature 0.010 Granulocytes # Neutrophils # 3.5 Lymphocytes # 2.2 Monocytes # 0.7 Eosinophils # 0.2 Basophils # 0.0 Nucleated Red Blood 0.0 Cells # Erythrocyte 35 H Sedimentation Rate Activated 112.5 *H 63.3 H Partial Thromboplast Time Sodium Level 139 Potassium Level 3.9 Chloride Level 106 Carbon Dioxide Level 27 Anion Gap 6 Blood Urea Nitrogen 8 Creatinine 0.66 Est Glomerular > 60 Filtrat Rate mL/min Glucose Level 246 H Calcium Level 8.6 Phosphorus Level 5.1 H Magnesium Level 2.0 Total Bilirubin 0.4 Direct Bilirubin 0.00 Indirect Bilirubin 0.4 Aspartate Amino 38 Transf (AST/SGOT) Alanine 37 Aminotransferase (AL T/SGPT) Alkaline Phosphatase 82 C-Reactive Protein 0.7 Total Protein 6.7 Albumin 3.2 L Globulin 3.50 H Albumin/Globulin 0.91 Ratio Bedside Glucose 248 H 269 H Medications Medication Current Medications Sodium Chloride 1,000 ml @ 75 mls/hr [id number] IV Last administered on 11/15/18at 04:45; Admin Dose 75 MLS/HR; Start 11/14/18 at 00:00 IV Flush (NS 3 ml) 3 ml PER PROTOCOL IV ; Start 11/13/18 at 21:30 Ondansetron HCl (Zofran Inj) 4 mg Q6H PRN IV NAUSEA/VOMITING; Start 11/13/18 at 21:30 Nitroglycerin (Nitroglycerin (Sl Tab) 0.4 Mg) 1 tab Q5M PRN SL .CHEST PAIN; Start 11/13/18 at 21:30 Acetaminophen (Tylenol Tab) 650 mg Q6H PRN PO .PAIN 1-3 OR TEMP Last administered on 11/15/18at 12:24; Admin Dose 650 MG; Start 11/13/18 at 21:30 Acetaminophen/ Hydrocodone Bitart ([place] (5/325)) 1 tab Q6H PRN PO .PAIN 4-6; Start 11/13/18 at 21:30 Morphine Sulfate (morphine) 2 mg Q4H PRN IV .PAIN 7-10; Start 11/13/18 at 21:30 Diagnostic Test (Pha) (Accu-Chek) 1 ea 02 XX ; Start 11/14/18 at 02:00 Lisinopril (Zestril) 20 mg DAILY PO Last administered on 11/15/18at 09:00; Admin Dose 20 MG; Start 11/14/18 at 09:00 Heparin Sodium (Porcine) (Heparin (1000 Units/ml)) 7,500 unit PER PROTOCOL PRN IV aPTT<47; Start 11/14/18 at 03:00 Heparin Sodium (Porcine) (Heparin (1000 Units/ml)) 3,700 unit PER PROTOCOL PRN IV aPTT<47-57; Start 11/14/18 at 03:00 Heparin Sodium (Porcine) 250 ml @ 17 mls/hr PER PROTOCOL IV Last administered on 11/15/18at 12:40; Admin Dose 16 MLS/HR; Start 11/13/18 at 21:30 Miscellaneous Information 1 ea NOTE XX ; Start 11/13/18 at 22:00 Glucose (Glutose) 15 gm Q15M PRN PO DECREASED GLUCOSE; Start 11/13/18 at 22:00 Glucose (Glutose) 22.5 gm Q15M PRN PO DECREASED GLUCOSE; Start 11/13/18 at 22:00 Dextrose (D50w Syringe) 25 ml Q15M PRN IV DECREASED GLUCOSE; Start 11/13/18 at 22:00 Dextrose (D50w Syringe) 50 ml Q15M PRN IV DECREASED GLUCOSE; Start 11/13/18 at 22:00 Glucagon (Glucagen) 1 mg Q15M PRN IM DECREASED GLUCOSE; Start 11/13/18 at 22:00 Glucose (Glutose) 15 gm Q15M PRN BUCCAL DECREASED GLUCOSE; Start 11/13/18 at 22:00 Insulin Aspart (Novolog Insulin Pen) (Adult SC Insulin - Mild Algorithm)... AC MEALS AND BEDTIME SC Last administered on 11/15/18 12:34; Admin Dose 4 UNIT; Start 11/14/18 at 11:30 Atorvastatin Calcium (Lipitor) 40 mg HS PO Last administered on 11/14/18 21:15; Admin Dose 40 MG; Start 11/14/18 at 21:00 Insulin Glargine (Lantus) 14 units DAILY@2000 SC Last administered on 11/14/18 20:22; Admin Dose 14 UNITS; Start 11/14/18 at 20:00 Insulin Aspart (Novolog Insulin Pen) 5 unit WITH MEALS SC Last administered on 11/15/18 12:34; Admin Dose 5 UNIT; Start 11/14/18 at 18:00 Hydralazine HCl (Apresoline) 10 mg Q4H PRN IV sbp above 170 Last administered on 11/15/18 09:00; Admin Dose 10 MG; Start 11/14/18 at 21:30 Ciprofloxacin HCl (Ciloxan 0.3% Oph) 1 drop Q4H RIGHT EYE Last administered on 11/15/18at 15:17; Admin Dose 1 DROP; Start 11/15/18 at 13:00 IVONNE GARCIA NP November 15, 2018 15:59
[2018-11-15] MEDS ORDERED: INSULIN GLARGINE [LANTus] (100 UNITS/ML) SYG SC SCH (20:00)
[2018-11-15 20:43] VITALS: BP 141/89; PULSE 89; RESP 17
[2018-11-15] MEDS: ATORVASTATIN 40 MG TAB PO SCH (20:44)
[2018-11-15] MEDS: MUPIROCIN 2% 22 GM OINT TOP SCH (20:47)
[2018-11-15] MEDS: CEFAZOLIN 1 GM/50 ML (PMX) 50 ML IVPB SCH (21:51)
[2018-11-16] MEDS: CIPROFLOXACIN 0.3% 2.5 ML OPH RIGHT EYE SCH ×4 (01:56→13:05)
[2018-11-16] MEDS: ACCU-CHEK XX SCH (01:59)
[2018-11-16 02:20] VITALS: BP 111/65; PULSE 75; RESP 18
[2018-11-16] MEDS: HEPARIN 25000 UNITS/250 ML 250 ML IV SCH (03:03)
[2018-11-16] MEDS: CEFAZOLIN 1 GM/50 ML (PMX) 50 ML IVPB SCH ×2 (05:55→14:11)
[2018-11-16 07:31] VITALS: BP 146/82; PULSE 84; RESP 18
[2018-11-16] MEDS: LISINOPRIL 20 MG TAB PO SCH (08:26)
[2018-11-16] MEDS: ACETAMINOPHEN 325 MG TAB PO PRN (08:27)
[2018-11-16] MEDS: MUPIROCIN 2% 22 GM OINT TOP SCH (08:27)
[2018-11-16] MEDS: Insulin NOVOLOG SS MILD Algorithm (SS with meals and bedtime) SC SCH ×2 (08:30→13:04)
[2018-11-16] MEDS: INSULIN ASPART [NOVOLOG] 3 ML PEN SC SCH ×2 (08:31→13:05)
[2018-11-16] MEDS ORDERED: CHOLECALCIFEROL 2,000 UNIT CAP PO SCH (10:30)
[2018-11-16 13:50] VITALS: BP 152/89; PULSE 92; RESP 18
--- NOTE | 2018-11-16 15:00 | PN ---
Date/Time of Note Date/Time of Note DATE: 11/16/18 TIME: 14:59 Assessment/Plan Lines/Catheters IV Catheter Type (from Nrs): [place] Assessment/Plan Assessment/Plan 1. Peripheral vascular disease. 2. Gangrene, right second toe. 3. Diabetes. RECOMMENDATIONS: This patient will probably lose the right second toe when the lines of demarcations are complete. Patient has triphasic flow in the femoral and popliteal arteries and two-vessel runoff with occlusion of the anterior tibial artery At this time, no surgical intervention is needed. We will continue local wound care, diabetes control. Discussed with the patient at length. All questions were answered. Subjective 24 Hr Interval Summary Constitutional: improved Pain Control: mild Exam/Review of Systems Vital Signs Vitals Vital Signs Date Temp Pulse Resp B/P (MAP) Pulse Ox O2 O2 Flow FiO2 Time Delivery Rate 11/16/18 98.0 84 18 146/82 97 Room Air 07:31 (103) Intake and Output 11/15/18 11/15/18 11/16/18 1515:00 23:00 07:00 IntakeIntake Total 146 ml 1724 ml 271 ml BalanceBalance 146 ml 1724 ml 271 ml Exam Eyes: nl conjunctiva, EOMI, nl lids, nl sclera ENMT: nl external ears & nose, nl lips & teeth, nl nasal mucosa & septum, mucosa pink and moist Neck: supple, non-tender Respiratory: clear to auscultation, normal air movement Cardiovascular: regular rate and rhythm, nl pulses Gastrointestinal: soft, nl liver, spleen, non-tender Musculoskeletal: nl extremities to inspection, nl gait and stance Results Result Diagram: 11/16/18 0652 11/16/18 0652 MARKEL MERIDA MD Nov 16, 2018 15:00
[2018-11-16] MEDS ORDERED: CHOL200073 PO (16:17)
[2018-11-16] MEDS ORDERED: LISI-471 PO (16:17)
[2018-11-16] MEDS ORDERED: ATOR40TA68 PO (16:17)
[2018-11-16] MEDS ORDERED: GLIP5TAB13 PO (16:17)
[2018-11-16] MEDS ORDERED: CEPH-443 PO (16:17)
[2018-11-16] MEDS ORDERED: METF-849 PO (16:17)
--- NOTE | 2018-11-16 16:22 | PDOCDIS ---
Discharge Instructions CONDITION [id number] Patient Condition: [id number] Stable HOME CARE INSTRUCTIONS: [id number] Diet Instructions: [id number] Low Fat /Cholesterol [id number] Special Diet: [id number] Low carbohydrate FOLLOW UP/APPOINTMENTS Follow-up Plan 1. Please follow-up with the wound care clinic at [facility]. Call for appointment at [phone]. 2. Neville López MD Specialty: Internal Medicine Office Address: [address] [place] [address] Office OTHER ORDERS: Other Orders: 1. Take medications as per prescription. Take over the counter aspirin 81 mg orally daily. 2. Take a low-cholesterol, low carbohydrate diet. 3. Resume activities as tolerated, but using a postop shoe on the right foot. 4. Follow-up with the [facility] wound care clinic in 1 week. 5. Please follow-up with your primary care physician in 1 week. If you do not have a primary care physician, please call Dr. Neville López's office. 6. Please go to the nearest emergency room if you have persistent fevers, worsening pain on the affected toe, or any other unusual signs/symptoms. IVONNE GARCIA NP Nov 16, 2018 16:22
[2018-11-16] MEDS ORDERED: ASPI-817 PO (16:50)
--- NOTE | 2018-11-16 16:53 | DS ---
Date/Time of Note Date/Time of Note DATE: 11/16/18 TIME: 16:52 Discharge Summary Admission/Discharge Info Admit Date/Time November 13, 2018 at 20:04 Discharge Date/Time Discharge Diagnosis 1. 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 2. Peripheral artery disease 3. Diabetes mellitus type 2. Newly diagnosed versus undiagnosed. Hemoglobin A1c 13.9. 4. Hypertension. 5. Obesity. BMI more than 32 kg/m. 6. Dyslipidemia. 7. Vitamin D deficiency. Patient Condition: Stable Consults 1. John Ohara MD, Vascular Surgery. 2. Nic Palomo DPM, Podiatry. Procedures Right Lower Extremity CTA IMPRESSION: 1. There is occlusion of the right anterior tibial artery just beyond its origin with only faint trickle flow seen in the mid anterior tibial artery. There is reconstitution of the vessel approximately 9 cm above the joint line. 2. Patent and grossly normal caliber of the dorsalis pedis artery. The dominant flow to the right lower extremities from the posterior tibial and peroneal arteries. 3. No evidence of significant atherosclerotic plaque within the right common femoral, superficial femoral or popliteal artery. These vessels are grossly normal in appearance. B/L LE Arterial Doppler Study IMPRESSION: Monophasic wave forms bilateral dorsalis pedis arteries consistent with significant stenoses. Normal bilateral ABIs. Right Foot X-Ray IMPRESSION: Unremarkable right foot x-ray series. Hx of Present Illness This is a 43-year-old male who is obese who denied any significant past medical history who came with right second toe pain with lower extremity CTA showing occlusion of the right anterior tibial artery, and was admitted to inpatient setting for further treatment and evaluation. Hospital Course The patient was admitted to inpatient setting. The patient was started on a heparin drip because of the occlusion of the right anterior tibial artery. A vascular surgery consult was obtained. The patient also had evidence of peripheral artery disease bilaterally based on her bilateral lower extremity arterial Doppler studies. Vascular surgery evaluated the patient and recommended no surgical intervention at this time. However, he recommended local wound care as well as diabetes control. The patient was newly diagnosed to have diabetes mellitus versus undiagnosed for a long time. The patient was noticed to have a hemoglobin A1c of 13.9 indicating poorly controlled blood sugars over the past 3 months. The patient was started on appropriate therapy including sliding scale insulin along with pre-meal insulin and basal insulin. A family educator consult was obtained. The patient was instructed on a low carbohydrate diet. He was informed about the new diagnosis of diabetes mellitus. Upon discharge, he was switched to oral medications to confirm compliance. The patient was also noticed to have hypertension. The patient was started on PHYLLIS inhibitors also to aid with underlying diabetes mellitus. The patient's antihypertensives were titrated to obtain optimal blood pressure control. The patient was also noticed to have dyslipidemia with elevated triglycerides, elevated total cholesterol, and suboptimal LDL. Therefore, the patient was started on statin therapy. The patient was also noticed to have a significant vitamin D deficiency. Therefore, the patient was started on vitamin D supplements. The patient was also evaluated by podiatry and podiatry recommended local wound care and antibiotic therapy. The patient's right foot x-ray was negative for any osteomyelitis. The patient needs outpatient podiatry follow-up. The patient's heparin drip has been discontinued and the patient was started on aspirin for his underlying peripheral vascular disease. The patient will be continued on statins. The patient needs close outpatient follow-up and this was reinforced with the patient and the patient is stable for outpatient therapy. Discharge Instructions 1. Take medications as per prescription. Take over the counter aspirin 81 mg orally daily. 2. Take a low-cholesterol, low carbohydrate diet. 3. Resume activities as tolerated, but using a postop shoe on the right foot. 4. Follow-up with [facility] wound care clinic in 1 week. 5. Please follow-up with your primary care physician in 1 week. If you do not have a primary care physician, please call Dr. Neville López's office. 6. Please go to the nearest emergency room if you have persistent fevers, worsening pain on the affected toe, or any other unusual signs/symptoms. The patient verbalized understanding of his discharge instructions. At this time I would like to thank all the consultants for seeing the patient and providing clinical recommendations. The patient was seen in collaboration with Dr. Farris. Home Meds Active Scripts Aspirin* (Aspirin* EC) 81 Mg Tablet., 81 MG PO DAILY, #30 TAB OTC medicine. Prov:IVONNE GARCIA WIRE LOOP MACHINE OPERATOR 11/16/18 Cephalexin* (Keflex*) 500 Mg Capsule, 500 MG PO Q8 for 7 Days, #21 CAP Prov:IVONNE GARCIA WIRE LOOP MACHINE OPERATOR 11/16/18 Cholecalciferol (Vitamin D3) (VITAMIN D-3) 2,000 Unit Capsule, 2000 UNIT PO DAILY, #30 CAP Prov:JOSEIVONNE NP 11/16/18 Glipizide* (Glipizide*) 5 Mg Tablet, 5 MG PO AC BREAKFAST, #30 TAB Prov:JOSEIVONNE NP 11/16/18 Metformin* (Glucophage*) 500 Mg Tab, 500 MG PO BID WITH MEALS, #60 TAB Prov:IVONNE GARCIA NP 11/16/18 Lisinopril* (Lisinopril*) 20 Mg Tablet, 20 MG PO DAILY, #30 TAB Prov:JOSEIVONNE NP 11/16/18 Atorvastatin* (Atorvastatin*) 40 Mg Tablet, 40 MG PO HS, #30 TAB Prov:JOSEIVONNE NP 11/16/18 Follow-up Plan 1. Please follow-up with the wound care clinic at [facility]. Call for appointment at [phone]. 2. Neville López MD Specialty: Internal Medicine Office Address: [address] [place] [id number] Office Primary Care Provider Care Physician No Primary Time spent on discharge: > 30 minutes Pending Labs RUN DATE: 11/16/18 [facility] PAGE 1 RUN TIME: [phone] [place] [address] Kaushik Sprague M.D. Paraplanner Benedicto Emerson M.D. Co-Paraplanner SABRINA#: [id number] Name: TACOS GARCIA Age/Sex: 43/M Attend Dr: KEARA LOMELI Acct: [id number] MR# : [id number] : 1975 Location: [facility] 2285-A Admit: 11/13/18 Specimen: [id number] Status: Resulted Clem: 11/15/18 Rcvd: 11/15/18 Source: RIGHT FOOT Sp Descrip: Procedure Result Microbiology GRAM STAIN Final POLYMORPH. LEUKOCYTE NONE SEEN . NO ORGANISM SEEN WOUND CULTURE Preliminary NO GROWTH AFTER 1 DAY ........................................................................................... Flags: Critical Hi = *H Critical Lo = *L Microbiology Abnormal = * Abnormal Hi = H Abnormal Lo = L Blood Bank Abnormal = * Susceptability Flags: S = Sensitive R = Resistant I = Intermediate END OF REPORT Laboratory Tests Test 11/15/18 17:12 11/15/18 17:36 11/15/18 20:43 11/15/18 23:25 Activated 91.6 105.2 Partial Thrombo Sec (23.0-35.0) Sec (23.0-35.0 plast Time ) Bedside 215 210 Glucose mg/dL (70-220) mg/dL (70-220) Test 11/16/18 01:57 11/16/18 06:52 11/16/18 08:02 11/16/18 12:45 Bedside 220 239 155 Glucose mg/dL (70-220) mg/dL (70-220) mg/dL (70-220) White Blood 7.4 Count 10^3/ul (4.8-1 0.8) Red Blood 4.92 Count 10^6/ul (4.70- 6.10) Hemoglobin 14.3 g/dl (14.0-18. 0) Hematocrit 42.3 % (42.0-52.0) Mean 86.0 Corpuscular fl (82.0-101.0 Volume ) Mean 29.1 Corpuscular pg (29.0-33.0) Hemoglobin Mean 33.8 Corpuscular g/dl (32.0-37. Hemoglobin Conc 0) ent Red Cell 12.4 Distribution % (11.5-14.5) Width Platelet Count 214 10^3/UL (140-4 15) Mean Platelet 11.2 Volume fl (7.4-10.4) Immature 0.400 Granulocytes % % (0.001-0.429 ) Neutrophils % 65.0 % (39.0-77.0) Lymphocytes % 21.8 % (15.0-51.0) Monocytes % 9.7 % (0.0-11.0) Eosinophils % 2.7 % (0.0-7.0) Basophils % 0.4 % (0.0-2.0) Nucleated Red 0.0 Blood Cells % /100WBC (0.0-0 .0) Immature 0.030 Granulocytes # 10^3/ul (0.0-0 .031) Neutrophils # 4.8 10^3/ul (1.6-7 .5) Lymphocytes # 1.6 10^3/ul (0.8-2 .9) Monocytes # 0.7 10^3/ul (0.3-0 .9) Eosinophils # 0.2 10^3/ul (0.0-0 .5) Basophils # 0.0 10^3/ul (0.0-0 .1) Nucleated Red 0.0 Blood Cells # 10^3/ul (0.0-0 .0) Activated 109.1 Partial Thrombo Sec (23.0-35.0 plast Time ) Sodium Level 137 mmol/L (135-14 4) Potassium 3.9 Level mmol/L (3.5-5. 1) Chloride Level 105 mmol/L (97-110 ) Carbon Dioxide 26 Level mmol/L (21-31) Anion Gap 6 (5-13) Blood Urea 9 mg/dl (7-20) Nitrogen Creatinine 0.75 mg/dl (0.61-1. 24) Est Glomerular > 60 Filtrat mL/min (>60) Rate mL/min Glucose Level 253 mg/dl (70-220) Calcium Level 9.1 mg/dl (8.4-10. 2) Phosphorus 5.2 Level mg/dl (2.5-4.9 ) Magnesium 2.0 Level mg/dl (1.7-2.5 ) Total 0.4 Bilirubin mg/dl (0.2-1.3 ) Direct 0.00 Bilirubin mg/dl (0.00-0. 20) Indirect 0.4 Bilirubin mg/dl (0-1.1) Aspartate Amino 35 Transf (AST/SGO IU/L (15-46) T) Alanine 41 Aminotransferas IU/L (13-69) e (ALT/SGPT) Alkaline 82 Phosphatase IU/L (42-121) Total Protein 7.1 g/dl (6.1-8.1) Albumin 3.5 g/dl (3.3-4.9) Globulin 3.60 g/dl (1.3-3.2) Albumin/Globuli 0.97 n Ratio Vitamin D < 12.8 1,25-Dihydroxy ng/ml (30-100) Test 11/16/18 15:51 Activated 89.0 Partial Thrombo Sec (23.0-35.0) plast Time Microbiology Date/Time Source Procedure Growth Status 11/15/18 17:12 Right Foot Gram Stain - Final Resulted 11/15/18 17:12 Right Foot Wound Culture - Preliminary Resulted IVONNE GARCIA NP Nov 16, 2018 16:53
[2018-11-16] MEDS ORDERED: metFORMIN 500 MG TAB PO SCH (18:00)
== END 2018-11-16 18:20 | disposition home or self-care (01) | DRG 301 ==
LOC: E/R 15:22 → 6WM 20:04 → 2NE 11-14 20:45
PROVIDERS: ADMIT Family Medicine; ATTEND Family Medicine
DX: E11.52 Type 2 diabetes mellitus with diabetic peripheral angiopathy with gangrene (principal); I77.1 Stricture of artery; E11.9 Type 2 diabetes mellitus without complications; I10 Essential (primary) hypertension; E66.9 Obesity, unspecified; Z68.32 Body mass index [BMI] 32.0-32.9, adult; E78.5 Hyperlipidemia, unspecified
CPT/HCPCS: 36415; 70450; 71045; 73630; 73706; 80048; 80053; 80061; 82306; 82652; 82962; 83036; 83605; 83735; 84100; 84443; 85025; 85610; 85651; 85730; 86140; 87070; 93005; 93922; J0360; J0690; J1644; J1815; J2270; J2405; J7030; L3260; Q9967